=== PATIENT | male | born 1945 | race Two or more races ===

== ENCOUNTER 2018-07-03 14:30 | Emergency (ER) | payer OTHER, MEDICAID ==
[2018-07-03] MEDS ORDERED: OXYCODONE/APAP 5/325 TAB PO ONE (17:35)
[2018-07-03] MEDS ORDERED: OXYCODONE/APAP 5/325MG PREPACK#4 BTL TAKEHOME ONE (18:18)
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
[2018-07-03 18:39] VITALS: BP 122/61
== END 2018-07-03 18:38 | disposition home or self-care (01) ==
LOC: CED 14:30
DX: M79.661 Pain in right lower leg (principal); M79.662 Pain in left lower leg; G89.4 Chronic pain syndrome; I10 Essential (primary) hypertension; E78.5 Hyperlipidemia, unspecified; I25.10 Atherosclerotic heart disease of native coronary artery without angina pectoris; E11.9 Type 2 diabetes mellitus without complications; N40.0 Benign prostatic hyperplasia without lower urinary tract symptoms; M19.90 Unspecified osteoarthritis, unspecified site; Z95.1 Presence of aortocoronary bypass graft
CPT/HCPCS: 99283-ER; G0480

== ENCOUNTER 2018-07-13 08:22 | Emergency (ER) | payer OTHER, MEDICAID | END 2018-07-13 10:48 | disposition home or self-care (01) | LOC: CED 08:22 ==

== ENCOUNTER 2018-07-16 13:36 | Emergency (ER) | payer OTHER, MEDICAID | END 2018-07-16 14:15 | disposition left against medical advice (07) ==

== ENCOUNTER 2018-07-17 22:34 | Observation (INO) | payer OTHER, MEDICAID | END 2018-07-22 13:19 | LOC: F3E 07-18 12:57 ==